=== PATIENT | male | born 1935 | race Caucasian/White ===

== ENCOUNTER 2019-01-24 06:00 | Day surgery (SDC) | payer OTHER ==
[~2019-01-24 06:00] MED LIST: LISINOPRIL20 MG PO; NORVASC5 MG; XARELTO2.5 MG PO; ZOCOR20 MG PO
== END 2019-01-24 16:10 | disposition home or self-care (01) ==
LOC: CIR.AMB 06:00
DX: M23.231 Derangement of other medial meniscus due to old tear or injury, right knee (principal)

== ENCOUNTER → 2023-11-11 | Emergency (ER) | payer OTHER ==
[~2023-11-11] VITALS: Ht 167.6 cm; Wt 88.5 kg
[~2023-11-11] MED LIST changes: +RINGERS SOLUTION,LACTATED 1,000 ML IV STA
[2023-11-11 18:21] LABS: HEMATOCRIT 44.8 % (39.0-48.0); HEMOGLOBIN 15.4 g/dL (13-16.00); MEAN CELL VOLUME 89.3 fL (80.0-100.00); MEAN CORPUSCULAR HEMOGLOBIN 30.6 pg (27.00-32.0); MEAN CORPUSCULAR HGB CONC 34.3 g/dl (32.0-36.0); PLATELET COUNT 244 K/uL (150-450); RED BLOOD COUNT 5.02 M/uL (4.00-6.00); RED CELL DISTRIBUTION WIDTH 14.7 % (11.5-14.5)
[2023-11-11 18:50] LABS: ALBUMIN 4.2 gm/dL (3.4-5.0); BILIRUBIN TOTAL 0.92 mg/dL (0.3-1.2); CALCIUM 10.7 mg/dL (8.5-10.1); CREATININE SERUM 0.7 mg/dL (0.70-1.30); GFR 106.43; GLOBULINA 3.5 G/DL (2.4-3.5); POTASSIUM 3.31 mEq/L (3.5-5.1); TOTAL PROTEIN 7.7 gm/dL (6.4-8.2)
[2023-11-11 19:05] LABS: INR 1.04; PARTIAL THROMBOPLASTIN TIME 28.9 SECONDS (22.0-34.0); PROTHROMBIN TIME 10.9 SECONDS (9.0-11.5)
== END | disposition designated cancer center or children's hospital (05) ==
LOC: ER 13:58
DX: I62.00 Nontraumatic subdural hemorrhage, unspecified (principal); W19.XXXA Unspecified fall, initial encounter; Y93.89 Activity, other specified; Y92.814 Boat as the place of occurrence of the external cause; Z20.822 Contact with and (suspected) exposure to COVID-19